=== PATIENT | female | born 1985 | race Caucasian/White ===

== ENCOUNTER 2016-09-01 17:03 | Emergency (ER) | payer OTHER | END 2016-09-01 17:20 | disposition left against medical advice (07) | LOC: FER 17:03 | DX: M79.672 Pain in left foot (principal); Z53.8 Procedure and treatment not carried out for other reasons ==

== ENCOUNTER 2016-09-01 18:21 | Emergency (ER) | payer SELFPAY | END 2016-09-01 20:23 | disposition home or self-care (01) | LOC: FER 18:21 | DX: S90.32XA Contusion of left foot, initial encounter (principal); F17.210 Nicotine dependence, cigarettes, uncomplicated; W22.8XXA Striking against or struck by other objects, initial encounter; Y92.009 Unspecified place in unspecified non-institutional (private) residence as the place of occurrence of the external cause | CPT/HCPCS: 73610; 73630; 99283 ==

== ENCOUNTER 2020-09-09 18:26 | Emergency (ER) | payer OTHER ==
[~2020-09-09 18:26] MED LIST: BACTRIM DS TAB1 EACH PO; BENTYL10 MG PO; HYCODAN5 ML PO; HYDROCORTISONE28 GM TOP; NORCO 5-325 TA1 EACH PO; PEPCID AC20 MG PO; PHENERGAN25 M1 PO; PRINIVIL10 MG PO; SEROQUEL 100MG100 MG PO; TESSALON PERLE100 MG PO; ULTRAM50 MG PO; VIBRAMYCIN100 MG PO; ZOFRAN4 MG PO; ZOFRAN4 MG SL
[2020-09-09 20:05] LABS: CORONAVIRUS 2019 SARS-COV-2 NEGATIVE (NEGATIVE); INFLUENZA A NAA NEGATIVE (NEGATIVE)
[2020-09-09 21:57] LABS: BASOPHIL 0.8 % (0-2); EOSINOPHIL 5.3 % (0-5); HCT 43.4 % (37.0-47.0); HGB 14.3 g/dl (12.5-16.0); LYMPHOCYTE 19.4 % (15-48); MCH 30.6 pg (25.0-31.0); MCHC 32.9 g/dL (32.0-36.0); MCV 92.9 fL (78.0-100.0); MONOCYTE 5.7 % (0-12); MPV 10.7 fL (6.0-9.5); NEUTROPHIL 68.4 % (41-80); NRBC 0; PLT 367 K/uL (150-400); RBC 4.67 M/uL (4.20-5.40); RDW 13.3 % (11.5-14.0); WBC 11.1 K/uL (4.0-10.5)
[2020-09-09 21:58] LABS: BILIRUBIN NEGATIVE (NEGATIVE); BLOOD NEGATIVE Ery/uL (NEGATIVE); CLARITY CLEAR (CLEAR); COLOR YELLOW (YELLOW); GLUCOSE (U) NORMAL (NORMAL); LEUKOCYTES NEGATIVE Leu/uL (NEGATIVE); NITRITE NEGATIVE (NEGATIVE); PROTEIN NEGATIVE (NEGATIVE); UROBILINOGEN 0.2 mg/dL (0.2-1.0)
[2020-09-09 22:01] LABS: HCG (URINE) SCREEN NEGATIVE (NEGATIVE)
[2020-09-09 22:08] LABS: BUN/CREAT RATIO (CALC) 11.2 RATIO; CREATININE 0.8 mg/dL (0.51-0.95); POTASSIUM 4.5 mmol/L (3.5-5.1)
== END 2020-09-09 23:23 | disposition home or self-care (01) ==
LOC: FER 18:26
PROVIDERS: Emergency Medicine; Student in an Organized Health Care Education/Training Program
DX: B34.9 Viral infection, unspecified (principal); F17.210 Nicotine dependence, cigarettes, uncomplicated; Z20.822 Contact with and (suspected) exposure to COVID-19
CPT/HCPCS: 36415; 71045; 80048; 81003; 84145; 84703; 85025; J0780; J1200; J7030; U0002

== ENCOUNTER 2020-10-30 04:53 | Emergency (ER) | payer OTHER ==
[2020-10-30 05:37] LABS: BASOPHIL 0.6 % (0-2); EOSINOPHIL 2.4 % (0-5); HCT 42.5 % (37.0-47.0); HGB 14.1 g/dl (12.5-16.0); MCH 30.3 pg (25.0-31.0); MCHC 33.2 g/dL (32.0-36.0); MCV 91.2 fL (78.0-100.0); MONOCYTE 4.9 % (0-12); MPV 10.3 fL (6.0-9.5); NEUTROPHIL 70.7 % (41-80); NRBC 0; PLT 365 K/uL (150-400); RBC 4.66 M/uL (4.20-5.40); RDW 13.1 % (11.5-14.0); WBC 14.3 K/uL (4.0-10.5)
[2020-10-30 05:51] LABS: INR 1.09 (0.9-1.2); PROTHROMBIN TIME 13.5 SECONDS (11.8-13.4); PTT 27.8 SECONDS (24.4-34.7)
[2020-10-30 06:03] LABS: MAGNESIUM 1.7 mg/dL (1.8-2.4)
[2020-10-30 06:45] LABS: AMPHETAMINES NEGATIVE (NEGATIVE); BARBITURATES NEGATIVE (NEGATIVE); ECSTASY (MDMA) NEGATIVE (NEGATIVE); HCG (URINE) SCREEN NEGATIVE (NEGATIVE); MARIJUANA (THC) NEGATIVE (NEGATIVE); METHADONE NEGATIVE (NEGATIVE); OPIATES NEGATIVE (NEGATIVE); OXYCODONE NEGATIVE (NEGATIVE)
== END 2020-10-30 06:17 | disposition home or self-care (01) ==
LOC: FER 04:53
PROVIDERS: Emergency Medicine
DX: S09.90XA Unspecified injury of head, initial encounter (principal); G40.901 Epilepsy, unspecified, not intractable, with status epilepticus; W19.XXXA Unspecified fall, initial encounter; Y92.89 Other specified places as the place of occurrence of the external cause; Y99.0 Civilian activity done for income or pay
CPT/HCPCS: 36415; 70450; 72125; 80305; 83735; 84703; 85025; 85610; 85730; G0480; J2060; J2250; J2405; J3010

== ENCOUNTER 2020-11-01 12:51 | Emergency (ER) | payer OTHER ==
[2020-11-01 14:16] LABS: BASOPHIL 0.9 % (0-2); EOSINOPHIL 4.2 % (0-5); HCT 42.9 % (37.0-47.0); HGB 14.4 g/dl (12.5-16.0); LYMPHOCYTE 14.7 % (15-48); MCH 30.8 pg (25.0-31.0); MCHC 33.6 g/dL (32.0-36.0); MCV 91.7 fL (78.0-100.0); MPV 10.7 fL (6.0-9.5); NEUTROPHIL 74.7 % (41-80); NRBC 0; PLT 379 K/uL (150-400); RBC 4.68 M/uL (4.20-5.40); WBC 13.5 K/uL (4.0-10.5)
[2020-11-01 15:20] LABS: ALBUMIN 3.5 g/dL (3.4-5.0); BILIRUBIN - TOTAL 0.3 mg/dL (0.2-1.0); BUN/CREAT RATIO (CALC) 12.7 RATIO; CREATININE 0.71 mg/dL (0.51-0.95); POTASSIUM 3.8 mmol/L (3.5-5.1); TOTAL PROTEIN 6.5 g/dL (6.4-8.2)
[2020-11-01 16:23] LABS: BILIRUBIN NEGATIVE (NEGATIVE); BLOOD TRACE-INTACT Ery/uL (NEGATIVE); CLARITY CLEAR (CLEAR); COLOR YELLOW (YELLOW); GLUCOSE (U) NORMAL (NORMAL); LEUKOCYTES NEGATIVE Leu/uL (NEGATIVE); NITRITE NEGATIVE (NEGATIVE); PROTEIN NEGATIVE (NEGATIVE); SPECIFIC GRAVITY 1.015 (1.001-1.030); UROBILINOGEN 0.2 mg/dL (0.2-1.0)
[2020-11-01 16:26] LABS: ECSTASY (MDMA) NEGATIVE (NEGATIVE); MARIJUANA (THC) NEGATIVE (NEGATIVE); METHADONE NEGATIVE (NEGATIVE); OPIATES NEGATIVE (NEGATIVE)
[2020-11-01 16:27] LABS: AMPHETAMINES NEGATIVE (NEGATIVE); BARBITURATES NEGATIVE (NEGATIVE); OXYCODONE NEGATIVE (NEGATIVE)
[2020-11-01 16:41] LABS: URINARY RBC RARE; URINARY WBC RARE
== END 2020-11-01 16:12 | disposition home or self-care (01) ==
LOC: FER 12:51
PROVIDERS: Nurse Practitioner Family
DX: G40.909 Epilepsy, unspecified, not intractable, without status epilepticus (principal); F17.210 Nicotine dependence, cigarettes, uncomplicated
CPT/HCPCS: 36415; 80053; 80305; 81001; 85025; J1100

== ENCOUNTER 2021-08-03 11:18 | Emergency (ER) | payer OTHER ==
[~2021-08-03] VITALS: Ht 170.2 cm; Wt 99.8 kg
[2021-08-03 12:36] LABS: BASOPHIL 0.9 % (0-2); BILIRUBIN NEGATIVE (NEGATIVE); BLOOD 3+ Ery/uL (NEGATIVE); CLARITY CLEAR (CLEAR); COLOR YELLOW (YELLOW); EOSINOPHIL 8.3 % (0-5); GLUCOSE (U) NORMAL (NORMAL); HCT 44.5 % (37.0-47.0); HGB 14.6 g/dl (12.5-16.0); LEUKOCYTES NEGATIVE Leu/uL (NEGATIVE); LYMPHOCYTE 26.6 % (15-48); MCH 29.9 pg (25.0-31.0); MCHC 32.8 g/dL (32.0-36.0); MCV 91.2 fL (78.0-100.0); MONOCYTE 5.3 % (0-12); MPV 10.2 fL (6.0-9.5); NEUTROPHIL 58.6 % (41-80); NITRITE NEGATIVE (NEGATIVE); NRBC 0; PLT 439 K/uL (150-400); PROTEIN NEGATIVE (NEGATIVE); RBC 4.88 M/uL (4.20-5.40); RDW 13.1 % (11.5-14.0); UROBILINOGEN 0.2 mg/dL (0.2-1.0); WBC 10.8 K/uL (4.0-10.5); pH 6.5 (5.0-9.0)
[2021-08-03 12:44] LABS: BACTERIA TRACE
[2021-08-03 12:52] LABS: CREATININE 0.73 mg/dL (0.51-0.95); POTASSIUM 3.9 mmol/L (3.5-5.1)
[2021-08-03] MEDS ORDERED: NORCO 5-325 TA1 EACH PO (14:18)
== END 2021-08-03 14:24 | disposition home or self-care (01) ==
LOC: FER 11:18
PROVIDERS: Emergency Medicine
DX: N80.9 Endometriosis, unspecified (principal); I10 Essential (primary) hypertension; Z79.899 Other long term (current) drug therapy; Z28.310 Unvaccinated for COVID-19
CPT/HCPCS: 36415; 80048; 81001; 85025; 99284

== ENCOUNTER 2021-08-07 08:44 | Emergency (ER) | payer OTHER ==
[2021-08-07 09:28] LABS: BASOPHIL 0.7 % (0-2); EOSINOPHIL 5.8 % (0-5); HGB 14.9 g/dl (12.5-16.0); MCH 30.5 pg (25.0-31.0); MCHC 33.9 g/dL (32.0-36.0); MONOCYTE 4.8 % (0-12); MPV 10.3 fL (6.0-9.5); NEUTROPHIL 65.3 % (41-80); NRBC 0; PLT 432 K/uL (150-400); RBC 4.89 M/uL (4.20-5.40); RDW 12.9 % (11.5-14.0); WBC 11.1 K/uL (4.0-10.5)
[2021-08-07 09:49] LABS: CREATININE 0.7 mg/dL (0.51-0.95); POTASSIUM 4.4 mmol/L (3.5-5.1)
[2021-08-07 11:27] LABS: BILIRUBIN NEGATIVE (NEGATIVE); BLOOD 1+ Ery/uL (NEGATIVE); CLARITY HAZY (CLEAR); COLOR YELLOW (YELLOW); GLUCOSE (U) NORMAL (NORMAL); LEUKOCYTES NEGATIVE Leu/uL (NEGATIVE); NITRITE NEGATIVE (NEGATIVE); PROTEIN NEGATIVE (NEGATIVE); UROBILINOGEN 0.2 mg/dL (0.2-1.0)
[2021-08-07] MEDS ORDERED: NORCO 5-325 TA1 EACH PO (11:38)
[2021-08-07 11:55] LABS: URINARY WBC RARE
[2021-08-07 11:56] LABS: BACTERIA TRACE
== END 2021-08-07 12:05 | disposition home or self-care (01) ==
LOC: FER 08:44
PROVIDERS: Emergency Medicine
DX: N93.8 Other specified abnormal uterine and vaginal bleeding (principal); F17.200 Nicotine dependence, unspecified, uncomplicated; Z88.6 Allergy status to analgesic agent; Z28.310 Unvaccinated for COVID-19
CPT/HCPCS: 36415; 76830; 80048; 81001; 85025; J1170

== ENCOUNTER 2021-11-18 18:58 | Emergency (ER) | payer OTHER ==
[2021-11-18 21:04] LABS: BASOPHIL 0.2 % (0-2); EOSINOPHIL 2.9 % (0-5); HGB 14.9 g/dl (12.5-16.0); LYMPHOCYTE 27.1 % (15-48); MCH 30.3 pg (25.0-31.0); MCHC 33.1 g/dL (32.0-36.0); MCV 91.6 fL (78.0-100.0); MONOCYTE 6.1 % (0-12); MPV 10.1 fL (6.0-9.5); NEUTROPHIL 63.5 % (41-80); NRBC 0; PLT 369 K/uL (150-400); RBC 4.91 M/uL (4.20-5.40); RDW 12.8 % (11.5-14.0); WBC 8.4 K/uL (4.0-10.5)
[2021-11-18 21:35] LABS: BUN/CREAT RATIO (CALC) 15.2 RATIO; CREATININE 0.79 mg/dL (0.51-0.95); POTASSIUM 3.8 mmol/L (3.5-5.1)
[2021-11-18] MEDS ORDERED: NORCO 5-325 TA1 EACH PO (21:40)
== END 2021-11-18 21:58 | disposition home or self-care (01) ==
LOC: FER 18:58
PROVIDERS: Internal Medicine
DX: S70.11XA Contusion of right thigh, initial encounter (principal); R79.1 Abnormal coagulation profile; I10 Essential (primary) hypertension; G40.909 Epilepsy, unspecified, not intractable, without status epilepticus; F17.290 Nicotine dependence, other tobacco product, uncomplicated; Z28.310 Unvaccinated for COVID-19; Z79.899 Other long term (current) drug therapy; Z88.5 Allergy status to narcotic agent; Z88.6 Allergy status to analgesic agent; W22.8XXA Striking against or struck by other objects, initial encounter; Y92.89 Other specified places as the place of occurrence of the external cause; Y99.0 Civilian activity done for income or pay
CPT/HCPCS: 36415; 80048; 85025; 85379; 99283